=== PATIENT | female | born 1960 | race Native Hawaiian/Other Pacific Islander ===

== ENCOUNTER 2018-08-01 05:48 | Inpatient (IN) | payer OTHER ==
[2018-07-30 18:47] VITALS: BMI 25.9
--- NOTE | 2018-08-01 06:42 | CP.PCM.HP ---
History of Present Illness - History of Present Illness History of Present Illness: 58 YO female with no significant PMH except of seasonal allergy presented for elective right total knee revision. Initial TKR was done last November; however, patient never regained full ROM and the joint kept bothering her and finally decision was made for revision. At this time denies any other complaints. PMH: None PSH: Right total and left partial knee replacement, and tonsillectomy Social hx: Denies any toxic habits, lives with Family hx: DM in mother and brother and heart attack in mother at the age of 72 requiring CABG Home meds: None Next of kin: Code status: Full code ROS: Apart from positives and pertinent negatives mentioned in the HPI rest of 14 points ROS was unremarkable Physical exam: Vitals: Within normal limits HEENT: AT/NC, EOMI, PERLL, no JVD, no cervical lymphadenopathy Lungs: Clear bilaterally on auscultation Cardiovascular: S1/S2, RRR, pulses full and symmetric bilaterally, no pedal edema Abdomen: Soft, NT/ND, no organomegaly appreciated Genitalia: Deferred Extremities: Right knee swollen with limited ROM, otherwise no joint deformity and ROM intact Neuro-exam: Patient is AAOx3 and exam is grossly non-focal Present on Admission - Present on Admission Any Indicators Present on Admission: No Past Patient History - Past Medical History & Family History Past Medical History?: Yes - Past Social History Smoking Status: Never Smoked - CARDIAC Hx Cardiac Disorders: No - PULMONARY Hx Respiratory Disorders: Yes Other/Comment: HX OF COUGH AND COLDS-1 MONTH AGO - NEUROLOGICAL Hx Neurological Disorder: No - HEENT Hx HEENT Problems: No - RENAL Hx Chronic Kidney Disease: No - ENDOCRINE/METABOLIC Hx Endocrine Disorders: No - HEMATOLOGICAL/ONCOLOGICAL Hx Blood Disorders: No Hx Anemia: No Hx Blood Transfusions: No - INTEGUMENTARY Hx Dermatological Problems: No - MUSCULOSKELETAL/RHEUMATOLOGICAL Hx Musculoskeletal Disorders: Yes Hx Arthritis: Yes (knee) Hx Falls: Yes Hx Osteoarthritis: Yes - GASTROINTESTINAL Hx Gastrointestinal Disorders: No - GENITOURINARY/GYNECOLOGICAL Hx Genitourinary Disorders: No - PSYCHIATRIC Hx Psychophysiologic Disorder: No - SURGICAL HISTORY Hx Surgeries: Yes Hx Arthroscopy: Yes (2017-RIGHT KNEE ARTHROSCOPY) Hx Section: Yes (X1) Hx Joint Replacement: Yes (right knee) Hx Orthopedic Surgery: Yes (R KNEE MANIPULATION;2012-LEFT PARTIAL KNEE REPLACEMENT;2018-RIGHT KNEE REPL) Hx Tonsillectomy: Yes - ANESTHESIA Hx Anesthesia: Yes Hx Anesthesia Reactions: No Hx Malignant Hyperthermia: No Has any member of the family had a problem w/ anesthesia?: No Meds Allergies/Adverse Reactions: Allergies Allergy/AdvReac Type Severity Reaction Status Date / Time No Known Allergies Allergy Verified 06/27/18 11:24 Results - Vital Signs Recent Vital Signs: Last Vital Signs Temp 98 F 08/01/18 06:28 Pulse 68 08/01/18 06:28 Resp 18 08/01/18 06:28 BP 126/69 08/01/18 06:28 Pulse Ox 98 08/01/18 06:28 Assessment & Plan - Assessment and Plan (Free Text) Assessment: 58 yo female presented for right total knee revision. As far as pre-op risk assessment she is of average risk for this intermediate risk procedure. No need for any further pre-op work up. Can proceed with surgery as planned.
[2018-08-01] MEDS ORDERED: Lactated Ringer's 1,000 ML IV ONE ×2 (06:53→08:17)
--- NOTE | 2018-08-01 07:20 | CP.PCM.CON ---
History of Present Illness - History of Present Illness History of Present Illness: Orthopedic consultation Dr. Parra 58F complains of continued right knee pain after TKR 11/2017 in [place] found to have failed TKR for revision TKR. Patient had successful L partial knee replacement in 2011. No history of bleeding/clotting disorder. No history of CVA/CAD/seizure disorder/stents. PSH: as above, c section PMH: denies NKDA no daily medication Review of Systems - Review of Systems All systems: reviewed and no additional remarkable complaints except - Musculoskeletal Musculoskeletal: As Per HPI Past Patient History - Past Medical History & Family History Past Medical History?: Yes Past Family History: Reviewed and not pertinent - Past Social History Smoking Status: Never Smoked - CARDIAC Hx Cardiac Disorders: No - PULMONARY Hx Respiratory Disorders: Yes Other/Comment: HX OF COUGH AND COLDS-1 MONTH AGO - NEUROLOGICAL Hx Neurological Disorder: No - HEENT Hx HEENT Problems: No - RENAL Hx Chronic Kidney Disease: No - ENDOCRINE/METABOLIC Hx Endocrine Disorders: No - HEMATOLOGICAL/ONCOLOGICAL Hx Blood Disorders: No Hx Anemia: No Hx Blood Transfusions: No - INTEGUMENTARY Hx Dermatological Problems: No - MUSCULOSKELETAL/RHEUMATOLOGICAL Hx Musculoskeletal Disorders: Yes Hx Arthritis: Yes (knee) Hx Falls: Yes Hx Osteoarthritis: Yes - GASTROINTESTINAL Hx Gastrointestinal Disorders: No - GENITOURINARY/GYNECOLOGICAL Hx Genitourinary Disorders: No - PSYCHIATRIC Hx Psychophysiologic Disorder: No - SURGICAL HISTORY Hx Surgeries: Yes Hx Arthroscopy: Yes (2017-RIGHT KNEE ARTHROSCOPY) Hx Section: Yes (X1) Hx Joint Replacement: Yes (right knee) Hx Orthopedic Surgery: Yes (R KNEE MANIPULATION;2011-LEFT PARTIAL KNEE REPLACEMENT;2017-RIGHT KNEE REPL) Hx Tonsillectomy: Yes - ANESTHESIA Hx Anesthesia: Yes Hx Anesthesia Reactions: No Hx Malignant Hyperthermia: No Has any member of the family had a problem w/ anesthesia?: No Meds Allergies/Adverse Reactions: Allergies Allergy/AdvReac Type Severity Reaction Status Date / Time No Known Allergies Allergy Verified 08/01/18 06:43 Physical Exam - Constitutional Appears: Well, No Acute Distress - Head Exam Head Exam: ATRAUMATIC - Neck Exam Neck exam: Positive for: Full Rom, Normal Inspection - Respiratory Exam Respiratory Exam: NORMAL BREATHING PATTERN - Expanded Lower Extremities Exam Right Knee exam: swelling, tenderness (very limited ROM, unable to extend -10) Neuro vacular tendon exam: no vascular compromise (+DP/PT pulses) - Neurological Exam Neurological exam: Alert, Oriented x3 - Psychiatric Exam Psychiatric exam: Normal Affect, Normal Mood - Skin Skin Exam: Dry, Intact, Normal Color, Warm Results - Vital Signs Recent Vital Signs: Last Vital Signs Temp 98 F 08/01/18 06:28 Pulse 68 08/01/18 06:35 Resp 18 08/01/18 06:28 BP 126/69 08/01/18 06:28 Pulse Ox 98 08/01/18 06:28 Assessment & Plan (1) Failed total knee, right Assessment and Plan: NPO for revision TKR d/w Dr. Parra, agrees with above Status: Acute
[2018-08-01] MEDS ORDERED: Tranexamic Acid 1,000 MG in Sodium Chloride 0.9% 100 ML IVPB ONE (07:25)
[2018-08-01] MEDS ORDERED: Absorbable Gelatin Sponge Size 100 ONE (07:34)
[2018-08-01] MEDS ORDERED: EPINEPHrine 1 mg/ml (1:1000) Inj IV ONE (10:15)
[2018-08-01 10:38] LABS: FLUID TYPE SYNOVIAL FLUID
[2018-08-01] MEDS ORDERED: Bacitracin OINT 15GM TOP ONE (11:40)
[2018-08-01 12:01] LABS: SF GROSS APPEARANCE CLOUDY (CLEAR); SYNOVIAL FLUID COMMENT SLIGHTLY BLOODY
[2018-08-01 12:02] LABS: SYNOVIAL FLUID MONO/MACROPHAGE 3 % (0-0)
[2018-08-01] MEDS ORDERED: Bisacodyl 5mg EC Tab PO PRN (12:10)
[2018-08-01] MEDS: HYDROmorphone 0.5 mg/0.5 ml ISec IVP PRN ×2 (12:20→12:35)
--- NOTE | 2018-08-01 13:05 | RAD ---
Date of service: 08/01/2018 PROCEDURE: Right Knee Radiographs. HISTORY: s/pt TKR pt in PACU COMPARISON: None. TECHNIQUE: 2 views obtained. FINDINGS: BONES: Status post total knee replacement. No osseous fracture. JOINTS: As above JOINT EFFUSION: None OTHER FINDINGS: There is a postoperative surgical drain. There anterior midline cutaneous brooke. IMPRESSION: Status post right TKR.
[2018-08-01] MEDS: Lactated Ringer's 1,000 ML IV SCH ×3 (14:24→21:44)
[2018-08-01] MEDS: ceFAZolin 2 GM in Sodium Chloride 0.9% 100 ML IVPB SCH ×2 (16:04→23:34)
--- NOTE | 2018-08-01 17:36 | CP.PCM.PN ---
Subjective - Date & Time of Evaluation Date of Evaluation: 08/01/18 Time of Evaluation: 17:15 - Subjective Subjective: Patient seen and examined at bedside POD 0 s/p revision of right TKR. Family present at bedside. Pt reports being tired, but denies any f/c/n/v/diarrhea, cp or sob. Objective - Vital Signs/Intake and Output Vital Signs (last 24 hours): Temp Pulse Resp BP Pulse Ox 97.4 F L 75 20 105/66 95 08/01/18 16:31 08/01/18 16:31 08/01/18 16:31 08/01/18 16:31 08/01/18 16:31 Intake and Output: 08/01/18 08/01/18 06:59 18:59 Intake Total 1500 Output Total 20 Balance 1480 - Medications Medications: Current Medications Acetaminophen (Tylenol 325mg Tab) 650 mg PO Q4 [facility] Last Admin: 08/01/18 17:26 Dose: Not Given Bisacodyl (Dulcolax) 10 mg PO HS PRN PRN Reason: Constipation Docusate Sodium (Colace) 100 mg PO BID [facility] Last Admin: 08/01/18 17:32 Dose: 100 mg Enoxaparin Sodium (Lovenox) 40 mg SC DAILY [facility]; Protocol Acetaminophen (Ofirmev) 100 mls @ 400 mls/hr IVPB Q6H [facility]; Protocol Stop: 08/02/18 08:01 Last Admin: 08/01/18 15:54 Dose: 400 mls/hr Lactated Ringer's (Lactated Ringer's) 1,000 mls @ 100 mls/hr IV .Q10H [facility] Last Admin: 08/01/18 14:24 Dose: Not Given Sodium Chloride (Sodium Chloride 0.45%) 1,000 mls @ 80 mls/hr IV .[id number] [facility] Stop: 08/02/18 13:14 Cefazolin Sodium 2 gm/ Sodium (Chloride) 100 mls @ 100 mls/hr IVPB Q8H [facility]; Protocol Stop: 08/02/18 00:59 Last Admin: 08/01/18 16:04 Dose: 100 mls/hr Morphine Sulfate (Morphine) 2 mg IVP Q4 PRN PRN Reason: Pain, severe (8-10) Ondansetron HCl (Zofran Inj) 4 mg IVP Q6 PRN PRN Reason: Nausea/Vomiting - Constitutional Appears: Non-toxic - Head Exam Head Exam: ATRAUMATIC, NORMAL INSPECTION - Eye Exam Eye Exam: EOMI - ENT Exam ENT Exam: Mucous Membranes Moist - Respiratory Exam Respiratory Exam: Clear to Ausculation Bilateral - Cardiovascular Exam Cardiovascular Exam: REGULAR RHYTHM, +S1, +S2 - GI/Abdominal Exam GI & Abdominal Exam: Soft, Normal Bowel Sounds. absent: Rigid, Tenderness - Extremities Exam Additional comments: right knee imbolizer in place; scd in place on left lower leg - Neurological Exam Neurological Exam: Alert, Awake, Oriented x3 - Skin Skin Exam: Normal Color Assessment and Plan - Assessment and Plan (Free Text) Assessment: 58 t/o female with no significant PMH, POD 0 s/p revision of right TKR. 1. Revision of right TKR -Cont management as per Ortho -FU CBC, BMP, Vit D, wound cultures -VS currently stable; cont. to Monitor
[2018-08-01] MEDS: Sodium Chloride 0.45% 1,000 ML IV SCH (21:44)
[2018-08-02] MEDS: Sodium Chloride 0.45% 1,000 ML IV SCH (01:46)
--- NOTE | 2018-08-02 06:13 | CP.PCM.PN ---
Subjective - Date & Time of Evaluation Date of Evaluation: 08/02/18 Time of Evaluation: 06:13 - Subjective Subjective: Patient states pain is well controlled. Urinating freq. Lita CP/SOB/dizziness/numbness/tingling Objective - Vital Signs/Intake and Output Vital Signs (last 24 hours): Temp Pulse Resp BP Pulse Ox 97.3 F L 58 L 18 101/66 92 L 08/02/18 04:12 08/02/18 04:12 08/02/18 04:12 08/02/18 04:12 08/02/18 04:12 Intake and Output: 08/01/18 08/02/18 18:59 06:59 Intake Total 1500 Output Total 20 Balance 1480 - Medications Medications: Current Medications Acetaminophen (Tylenol 325mg Tab) 650 mg PO Q4 [facility] Last Admin: 08/02/18 01:00 Dose: Not Given Bisacodyl (Dulcolax) 10 mg PO HS PRN PRN Reason: Constipation Docusate Sodium (Colace) 100 mg PO BID [facility] Last Admin: 08/01/18 17:32 Dose: 100 mg Enoxaparin Sodium (Lovenox) 40 mg SC DAILY [facility]; Protocol Acetaminophen (Ofirmev) 100 mls @ 400 mls/hr IVPB Q6H [facility]; Protocol Stop: 08/02/18 08:01 Last Admin: 08/02/18 01:45 Dose: 400 mls/hr Morphine Sulfate (Morphine) 2 mg IVP Q4 PRN PRN Reason: Pain, severe (8-10) Ondansetron HCl (Zofran Inj) 4 mg IVP Q6 PRN PRN Reason: Nausea/Vomiting - Extremities Exam Additional comments: right Knee: hemovac 100cc +ROM ankle/toes, sensation intact, +DP/PT pulses calves soft NT neg homans Assessment and Plan (1) Failed total knee, right Assessment & Plan: POD#1 s/p revision TKR hypotensive with PT, will hold narcotics, IVF attempt again d/c planning dVT proph d/w Dr. Parra, agrees with above Status: Acute (2) Acute blood loss anemia Status: Acute
[2018-08-02 06:19] LABS: HEMOGLOBIN 9.6 g/dL (12.0-16.0); MEAN CELL VOLUME 84.1 fl (81.0-99.0); MEAN CORPUSCULAR HEMOGLOBIN 27.4 pg (27.0-31.0); MEAN CORPUSCULAR HGB CONC 32.6 g/dL (33.0-37.0); RBC 3.49 Mil/uL (3.80-5.20); WHITE BLOOD COUNT 11.1 K/uL (4.8-10.8)
[2018-08-02 06:26] LABS: BLOOD UREA NITROGEN 11 mg/dl (7-17); CALCIUM 8.8 mg/dL (8.4-10.2); GFR NON-AFRICAN AMERICAN > 60
--- NOTE | 2018-08-02 08:24 | PCM.SURG1 ---
Surgeon's Initial Post Op Note - Surgeon's Notes Surgeon: Fidel Criminal Court Judge: GADIEL Davies CRNFa Type of Anesthesia: General Endo, Spinal Anesthesia Administered By: Dr Ulloa Pre-Operative Diagnosis: failed painful TKR. Sever arthrofibrosis Operative Findings: severe arthrofibrosis- anterior and posterior compartment/medial and lateral gutters. posterior capsular comntracture. lateral; patella contracture. stress fracture medial condyle /epicondyle Post-Operative Diagnosis: severe arthrofibrosis- anterior and posterior compartments. stress fracture medial epicondyle with partial compromise medial collateral ligament(superficial). severe fibrosis and contracture posterior knee capsule. contracture lateral patella retinaculum. partial avulsion patella ligament. sever arthrofibrosis with 30 contracture short of extension to 75 degrees flexion Operation Performed: Revision TKR (tibial- one componenet). ORIF medial epicondylar/condylar fragment with A/C screw fixation. repair/reinforecment patella ligamnet. repair medial collateral ligament (partial tear). posterior cqpsular releaase. lateral patella releaase. Anterior and posterior synovectomy Specimen/Specimens Removed: scar/ bone/synovium Estimated Blood Loss: EBL {In ML}: 125 Blood Products Given: N/A Drains Used: Hemovac Post-Op Condition: Fair Date of Surgery/Procedure: 08/01/18 Time of Surgery/Procedure: 09:05 (time in room 8:17/anaeasthesia indcurtion time 8:17)
[2018-08-02] MEDS ORDERED: Enoxaparin 40 mg Syringe SC SCH (09:00)
--- NOTE | 2018-08-02 09:10 | CP.PCM.DIS ---
Provider - Provider Date of Admission: 08/01/18 12:10 Attending physician: Leona Ramos DO Consults: 08/01/18 12:10 Case Management Referral Routine Comment: Physician Instructions: Reason For Exam: Reason for Referral: Discharge Planning 08/01/18 13:05 Orthopedic Consult Routine Comment: Consulting Provider: Roman Parra III Consulting Physician: Roman Parra III Reason for Consult: revision TKR Hospital Course - Lab Results Lab Results: Micro Results 08/01/18 13:56 Knee - Right Gram Stain - Final 08/01/18 13:56 Knee - Right Gram Stain - Final 08/01/18 13:56 Knee - Right Gram Stain - Final 08/01/18 13:56 Knee - Right Gram Stain - Final 08/01/18 13:56 Knee - Right Gram Stain - Final 08/01/18 13:56 Knee - Right Gram Stain - Final 08/01/18 13:56 Knee - Right Gram Stain - Final Most Recent Lab Values WBC 11.1 K/uL (4.8-10.8) H 08/02/18 06:05 RBC 3.49 Mil/uL (3.80-5.20) L 08/02/18 06:05 Hgb 9.6 g/dL (12.0-16.0) L 08/02/18 06:05 Hct 29.4 % (34.0-47.0) L 08/02/18 06:05 MCV 84.1 fl (81.0-99.0) 08/02/18 06:05 MCH 27.4 pg (27.0-31.0) 08/02/18 06:05 MCHC 32.6 g/dL (33.0-37.0) L 08/02/18 06:05 RDW 14.0 % (11.5-14.5) 08/02/18 06:05 Plt Count 335 K/uL (130-400) 08/02/18 06:05 Sodium 138 mmol/l (132-148) 08/02/18 06:05 Potassium 4.3 MMOL/L (3.6-5.0) 08/02/18 06:05 Chloride 105 mmol/L (98-107) 08/02/18 06:05 Carbon Dioxide 29 mmol/L (22-30) 08/02/18 06:05 Anion Gap 8 (10-20) L 08/02/18 06:05 BUN 11 mg/dl (7-17) 08/02/18 06:05 Creatinine 0.7 mg/dl (0.7-1.2) 08/02/18 06:05 Est GFR ( Amer) > 60 08/02/18 06:05 Est GFR (Non-Af Amer) > 60 08/02/18 06:05 Random Glucose 108 mg/dL (65-105) H 08/02/18 06:05 Calcium 8.8 mg/dL (8.4-10.2) 08/02/18 06:05 Fluid Type Synovial fluid 08/01/18 09:12 Synovial WBC 21.0 /mm3 (0.0-150.0) 08/01/18 09:12 Synovial RBC 32061.0 /mm3 (0.0-0.0) H 08/01/18 09:12 Synovial Neutrophils 19.0 % (0-0) H 08/01/18 09:12 Synovial Lymphocytes 28.0 % (0-0) H 08/01/18 09:12 Synov Monos/Macrophage 3 % (0-0) H 08/01/18 09:12 Synovial Fluid Comment Slightly bloody 08/01/18 09:12 Blood Type O POSITIVE 08/01/18 07:20 Blood Type Confirm O POSITIVE 08/01/18 08:15 Antibody Screen Negative 08/01/18 07:20 Crossmatch See Detail 08/01/18 07:20 BBK History Checked No verified bt 08/01/18 07:20 Discharge Exam - Head Exam Head Exam: ATRAUMATIC, NORMAL INSPECTION Discharge Plan - Follow Up Plan Condition: GOOD Disposition: HOME/ ROUTINE
[2018-08-02] MEDS: Sodium Chloride 0.9% 500 ML IV SCH ×4 (09:36→20:57)
--- NOTE | 2018-08-02 11:59 | CP.PCM.PN ---
Subjective - Date & Time of Evaluation Date of Evaluation: 08/02/18 Time of Evaluation: 09:12 - Subjective Subjective: 58 y/o F POD1 sp revision of Rt TKR. Patient had an episode of orthostatic hypotension while with physical therapy. LR bolus was given. Pt denied any cp or sob. Will cont. to monitor. Denies f/c/n/v. Objective - Vital Signs/Intake and Output Vital Signs (last 24 hours): Temp Pulse Resp BP Pulse Ox 97.6 F 62 20 95/60 L 95 08/02/18 08:13 08/02/18 08:13 08/02/18 08:13 08/02/18 08:13 08/02/18 08:13 Intake and Output: 08/02/18 08/02/18 06:59 18:59 Intake Total 1260 Output Total 2500 Balance -1240 - Medications Medications: Current Medications Acetaminophen (Tylenol 325mg Tab) 650 mg PO Q4 [facility] Last Admin: 08/02/18 09:34 Dose: 650 mg Bisacodyl (Dulcolax) 10 mg PO HS PRN PRN Reason: Constipation Docusate Sodium (Colace) 100 mg PO BID [facility] Last Admin: 08/02/18 09:38 Dose: 100 mg Enoxaparin Sodium (Lovenox) 40 mg SC DAILY [facility]; Protocol Sodium Chloride (Sodium Chloride 0.9%) 500 mls @ 125 mls/hr IV .Q4H [facility] Last Admin: 08/02/18 09:36 Dose: 125 mls/hr Lactated Ringer's (Lactated Ringer's) 1,000 mls @ 999 mls/hr IV .Q1H1M [facility] Ketorolac Tromethamine (Toradol) 30 mg IVP Q6 PRN PRN Reason: Pain, Mild (1-3) Morphine Sulfate (Morphine) 2 mg IVP Q4 PRN PRN Reason: Pain, severe (8-10) Last Admin: 08/02/18 09:56 Dose: 2 mg Ondansetron HCl (Zofran Inj) 4 mg IVP Q6 PRN PRN Reason: Nausea/Vomiting - Labs Labs: 08/02/18 06:05 08/02/18 06:05 - Constitutional Appears: Non-toxic - Head Exam Head Exam: ATRAUMATIC, NORMAL INSPECTION - Eye Exam Eye Exam: EOMI - ENT Exam ENT Exam: Mucous Membranes Moist - Respiratory Exam Respiratory Exam: Clear to Ausculation Bilateral - Cardiovascular Exam Cardiovascular Exam: REGULAR RHYTHM, +S1, +S2 - Extremities Exam Additional comments: right knee imbolizer in place; scd in place on left lower leg - Neurological Exam Neurological Exam: Alert, Awake, Oriented x3 Additional comments: sensation to b/l lower ext digits intact and symmetrical - Psychiatric Exam Psychiatric exam: Normal Mood - Skin Skin Exam: Dry Assessment and Plan - Assessment and Plan (Free Text) Assessment: 58 y/o female with no significant PMH, POD 1 s/p revision of right TKR. 1. Revision of right TKR -Cont management as per Ortho -Hbg, 9.6; , BMP unremarkable; FU am labs - cont. to Monitor 2. Vit D deficiency -C/w vit D replacement
--- NOTE | 2018-08-02 15:48 | OP ---
PROCEDURE DATE: 08/01/2018 PREOPERATIVE DIAGNOSES: 1. Severe arthrofibrosis, right knee. 2. Failed painful right total knee replacement. POSTOPERATIVE DIAGNOSES: 1. Severe arthrofibrosis of anterior and posterior compartments and medial and lateral patellar gutters. 2. Fracture of the medial epicondyle/condyle with compromise of the medial collateral ligament, superficial. 3. Severe arthrofibrosis and contracture of the posterior capsule of the knee. 4. Lateral patellar retinacular contracture. 5. Partial avulsion of patellar ligament. 6. In summary, severe arthrofibrosis and painful knee for this patient with 30-degree contracture short of extension, which was only 75-80 degrees of flexion. OPERATION PERFORMED: 1. Revision total knee replacement, one component. 2. Open reduction internal fixation of medial epicondyle and medial condylar fragment with internal fixation. 3. Repair and reinforcement of patellar ligament with Arthrex suture anchors, which are PEEK. 4. Medial collateral ligament partial tear repair. 5. Extensive posterior capsular release. 6. Lateral patellar retinacular release. 7. Anterior and posterior synovectomy, extensive. SURGEON: Roman Parra MD OPERATIVE FINDINGS: 1. Severe arthrofibrosis of the right knee anterior and posterior compartments. 2. Severe contracture of the posterior compartment with contracture of the lateral patellar retinaculum. 3. Stress fracture, medial condyle, epicondyle. 4. Partial avulsion of less than 25% of fibers of the patellar ligament insertion. ESTIMATED BLOOD LOSS: Approximately 125 mL. No blood products given. DRAINS: One Hemovac. POSTOPERATIVE CONDITION: Stable. Range of motion at the end of the procedure was essentially full extension to approximately 125 degrees of flexion. TIME IN THE ROOM: 8:17. TIME OF THE PROCEDURE: 9:05. OPERATIVE INDICATIONS: Vidal Vincent is a 58-year-old woman, who presents after right total knee replacement done at [facility] approximately one year ago. The patient felt the knee was never quite right. During the course of rehabilitation, the patient developed contracture of approximately 30 degrees short of extension to 75-80 degrees of flexion. The patient was treated conservatively. The initial operating surgeon, Dr. Williamson, attempted closed manipulation which failed. The patient could no longer stand the discomfort. Her gait had deteriorated to the fact that it was painful, unsightly and the patient could not deal with it any longer. Pros, cons, risks and benefits of surgical approach were discussed. The surgical discussion was carried out with the patient and her , Terence, and again, defining the fact that the patient's responsibility after a successful operation is to rehab the knee. She has to bend it, she has to get it to full extension. A large onus is on the patient. The possibility of mechanical failure, infection, possibility of thromboembolic disease, possibility of secondary or tertiary surgery was discussed. Possibility of nerve injury was discussed. The patient can no longer stand the discomfort and demanded the surgery. SPECIMENS REMOVED: Scar, bone and synovium. DESCRIPTION OF PROCEDURE: After having obtained informed consent in the above fashion, after having identified side, site and procedure and a critical pause/time-out, after the satisfactory induction of the anesthetic, the patient identified as Vidal Vincent, was placed in the supine position with all bony prominences well padded. The knee again was found to have a contracture of approximately -32 degrees to 75 degrees. Closed manipulation was attempted and failed. At this point, after having obtained informed consent, after the satisfactory induction of the spinal and general anesthesia by Dr. Long, after having identified side, site and procedure and critical pause/time-out, the right lower extremity was prepped and free draped in the usual fashion for lower extremity surgery. The tourniquet had been applied, but was not yet inflated. After exsanguinating the limb using a 6-inch Esmarch bandage, the tourniquet, which had been applied, was inflated to 350 mmHg. The initial incision was extended two fingerbreadths proximal and two fingerbreadths distal. The initial incision after having identified and accomplishing a critical pause/time-out, skin incision was carried down through the skin and subcutaneous tissue. An ellipse of skin and subcutaneous tissue was removed. Dissection was carried out medially and laterally to expose the medial and lateral patellar retinaculum. The joint was entered. A medial arthrotomy was accomplished. There was found to be massive scar immediately. Aliquots of fluid was sent for stat Gram stain, number of white cells per high-power field, aerobic, anaerobic, AFB and fungal cultures. Dissection was carried around posteromedially to the direct head of the semimembranosus tendon. On flexion of the knee, there was found to be a stress fracture of the medial femoral condyle and the epicondyle because of the severe scarring to the structure. With flexion, there was minimal displacement. At this point in time, extensive synovectomy commences. A portion of the patellar ligament was elevated. Great care was taken to go around posterolaterally to free up the iliotibial band insertion into the Gerdy's tubercle and lateral aspect of the tibia. This having been accomplished, attention was turned to the lateral gutter. There was found to be contracture of the lateral patellar retinaculum. A lateral patellar retinacular release was accomplished. At this point in time, the joint was entered both medially and laterally. An extensive synovectomy commences. Firstly on the anterior aspect of the femur, there was found to be gross hyalinization and severe synovitis. An extensive synovectomy was accomplished and adhesions of the extensor mechanism are encountered, so using a 1-inch curved osteotome, the extensor mechanism was freed from the anterior aspect of the femur. Medial and lateral patellar retinaculum were identified. Medial arthrotomy was accomplished. The scarring in the medial aspect was excised as well and a lateral patellar retinacular release was accomplished. This having been accomplished, there was found to be evidence of some minor compromise of the medial collateral ligament in the attachment to the fracture component, which was exacerbated on flexion and, therefore, had to be fixed. At this point in time, the Slade polyethylene was removed and extensive adhesions were found both on the component and in the posterior capsule. This having been accomplished with both assistance stabilizing the femur and the tibia so as not to have any deviation posteriorly, an extensive posterior synovectomy was accomplished. The posterior capsule was found to be originally contracted at this point in time. In the posterior recess posterior to the lateral femoral condyle, using the curved electrocautery, the capsule was released. Further release was accomplished with a half-inch curved osteotome of the posterior aspect of the femur. Great care was taken to avoid injury to the popliteal artery and the neurocirculatory structures. The same thing was accomplished medially. The posterior capsule was released. There was a bit of instability because of the fracture fragment. At this point in time, with the tibial polyethylene removed and extensive posterior capsular release had been accomplished, an extensive lysis of adhesions in the posterior compartment had been accomplished, extensive lysis of adhesions in the anterior compartment extending medially and laterally and a thorough lateral patellar retinacular release was accomplished and a partial elevation of patellar ligament offered ability to get the knee to full extension. The knee at this point in time achieved full extension. With the knee now on 30 degrees of flexion, the fragment was placed back to its bed and drilling was accomplished with a 2.7-mm drill bit and the appropriate size AO cancellous screw was introduced and the fragment fixation was found to be stable. At this point in time, several interrupted FiberWire sutures were placed in the collateral ligament. There was found to be excellent integrity and no instability medially or laterally as the 12 mm polyethylene was introduced. With the 12 mm polyethylene introduced, the knee obtained full extension. Please refer to the intraoperative photographs, which had been taken on the cell phone of Wilbert Maldonado. Flexion to approximately 125 degrees to 127 degrees was obtained. There was no evidence of instability medially and laterally, anterior and posteriorly. Fixation of the fragment was found to be excellent. The wound was thoroughly irrigated. At this point in time, the trial was removed. All adhesions were removed from the femoral component and the tibial component. Both the femoral component and the tibial component were found to be well fixed. At this point in time, the 12-mm polyethylene was introduced. The Slade 12-mm polyethylene was introduced after extensive anterior and posterior synovectomy and extensive posterior capsular release and lateral patellar retinacular release. This allowed the knee to be brought to full extension. At this point in time, the 12-mm Slade polyethylene was introduced. Flexion/extension was found to be stable. Medial and lateral are stable at 0 degrees, 30 degrees, and 90 degrees. The wound was thoroughly irrigated. Hemostasis was controlled with the Aquamantys. Tourniquet was deflated. Irrigation was with epinephrine solution as well, 1:1000 epinephrine 2 mL and 250 mL of saline. Extensive irrigation. Hemostasis was controlled with the Aquamantys and the electrocautery. Closure was in layers with #2 FiberWire. At this point in time, the patellar ligament was repaired with two interrupted Arthrex SutureTak's. Drilling was accomplished followed by impaction of 3 mm tack and 4 mm tack, each with two sutures apiece and this stabilized the patellar ligament both to the medial retinaculum and to the patellar ligament. The stability was found to be excellent. Flexion/extension was stable. The medial condylar epicondylar fragment was stable. The wound was thoroughly irrigated. The tourniquet was deflated. Hemostasis was controlled with the Aquamantys; and with the electrocautery. It should be noted that preoperative tranexamic acid had been accomplished. The wound was thoroughly irrigated. Closure was in layers, #2 FiberWire, 0 Vicryl, 2-0 Vicryl, brooke for skin over an 8-inch suction Hemovac drain. Odell Hillman compression dressing and knee immobilizer with the knee in full extension was applied. Roman Parra MD
[2018-08-02] MEDS: Calcium-Vit D 500 mg-200 Units Tab UD PO SCH (16:11)
[2018-08-02] MEDS: Cholecalciferol 1,000 INTLU TAB PO SCH (16:12)
[2018-08-02] MEDS: Lactated Ringer's 1,000 ML IV SCH ×10 (16:17→23:28)
[2018-08-02] MEDS: Enoxaparin 40 mg Syringe SC SCH (17:08)
[2018-08-03] MEDS: Lactated Ringer's 1,000 ML IV SCH ×7 (00:25→06:56)
[2018-08-03] MEDS: Sodium Chloride 0.9% 500 ML IV SCH ×6 (00:33→16:29)
[2018-08-03 07:54] LABS: HEMOGLOBIN 9.1 g/dL (12.0-16.0); MEAN CELL VOLUME 84.5 fl (81.0-99.0); MEAN CORPUSCULAR HEMOGLOBIN 27.8 pg (27.0-31.0); MEAN CORPUSCULAR HGB CONC 32.9 g/dL (33.0-37.0); RBC 3.28 Mil/uL (3.80-5.20); RED CELL DISTRIBUTION WIDTH 14.2 % (11.5-14.5); WHITE BLOOD COUNT 10.1 K/uL (4.8-10.8)
[2018-08-03 08:16] LABS: BLOOD UREA NITROGEN 11 mg/dl (7-17); CALCIUM 8.3 mg/dL (8.4-10.2); GFR NON-AFRICAN AMERICAN > 60
[2018-08-03] MEDS ORDERED: Bisacodyl 5mg EC Tab PO ONE (10:32)
[2018-08-03] MEDS: Cholecalciferol 1,000 INTLU TAB PO SCH (11:08)
[2018-08-03] MEDS: Calcium-Vit D 500 mg-200 Units Tab UD PO SCH (11:10)
--- NOTE | 2018-08-03 13:55 | CP.PCM.PN ---
<Angelina Naik - Last Filed: 08/03/18 13:51> Subjective - Date & Time of Evaluation Date of Evaluation: 08/03/18 Time of Evaluation: 09:25 - Subjective Subjective: 58 y/o F POD2 sp revision of Rt TKR. Patient reports that her pain has been controlled on current pain control regimen. States that her last BM was 3 days ago, and she feels " uncomfortable" . Denies CP/SOB/N/V. Objective - Vital Signs/Intake and Output Vital Signs (last 24 hours): Temp Pulse Resp BP Pulse Ox 98.3 F 99 H 20 112/73 95 08/03/18 08:53 08/03/18 08:53 08/03/18 08:53 08/03/18 08:53 08/03/18 08:53 Intake and Output: 08/03/18 08/03/18 06:59 18:59 Output Total 70 Balance -70 - Medications Medications: Current Medications Acetaminophen (Tylenol 325mg Tab) 650 mg PO Q4 [facility] Last Admin: 08/03/18 11:12 Dose: Not Given Bisacodyl (Dulcolax) 10 mg PO HS PRN PRN Reason: Constipation Calcium/Vitamin D (Oyster Shell Calcium/Vitamin D 500 Mg-200 Iu) 1 tab PO DAILY [facility] Last Admin: 08/03/18 11:10 Dose: 1 tab Cholecalciferol (Vitamin D) 4,000 intlu PO DAILY [facility] Last Admin: 08/03/18 11:08 Dose: 4,000 intlu Docusate Sodium (Colace) 100 mg PO BID [facility] Last Admin: 08/03/18 11:12 Dose: Not Given Enoxaparin Sodium (Lovenox) 40 mg SC DAILY@1700 [facility]; Protocol Last Admin: 08/02/18 17:08 Dose: Not Given Sodium Chloride (Sodium Chloride 0.9%) 500 mls @ 125 mls/hr IV .Q4H [facility] Last Admin: 08/03/18 11:12 Dose: Not Given Lactated Ringer's (Lactated Ringer's) 1,000 mls @ 999 mls/hr IV .Q1H1M [facility] Last Admin: 08/03/18 06:56 Dose: Not Given Ketorolac Tromethamine (Toradol) 30 mg IVP Q6 PRN PRN Reason: Pain, Mild (1-3) Last Admin: 08/02/18 13:12 Dose: 30 mg Morphine Sulfate (Morphine) 2 mg IVP Q4 PRN PRN Reason: Pain, severe (8-10) Last Admin: 08/02/18 18:10 Dose: 2 mg Ondansetron HCl (Zofran Inj) 4 mg IVP Q6 PRN PRN Reason: Nausea/Vomiting - Labs Labs: 08/03/18 06:00 08/03/18 06:00 - Skin Additional comments: Constitutional Appears: Non-toxic - Head Exam Head Exam: ATRAUMATIC, NORMAL INSPECTION - Eye Exam Eye Exam: EOMI - ENT Exam ENT Exam: Mucous Membranes Moist - Respiratory Exam Respiratory Exam: Clear to Ausculation Bilateral - Cardiovascular Exam Cardiovascular Exam: REGULAR RHYTHM, +S1, +S2 - Extremities Exam Additional comments: right knee imbolizer in place; scd in place on left lower leg - Neurological Exam Neurological Exam: Alert, Awake, Oriented x3 Additional comments: sensation to b/l lower ext digits intact and symmetrical - Psychiatric Exam Psychiatric exam: Normal Mood Assessment and Plan - Assessment and Plan (Free Text) Assessment: 58 y/o female with no significant PMH, POD 2 s/p revision of right TKR. Plan: 1. Revision of right TKR -on POD #2 -afebrile, VS stable -Cont management as per Ortho -c/w pain control -c/w constipation prevention -will give Dulcolax now -Hbg stable; , BMP unremarkable -cont. to Monitor 2. Vit D deficiency -C/w vit D replacement 3. DVT prophylaxis on Lovenox 40 mg SC <Allie Lay - Last Filed: 08/03/18 16:03> Objective - Vital Signs/Intake and Output Vital Signs (last 24 hours): Temp Pulse Resp BP Pulse Ox 98.3 F 99 H 20 112/73 95 08/03/18 08:53 08/03/18 08:53 08/03/18 08:53 08/03/18 08:53 08/03/18 08:53 Intake and Output: 08/03/18 08/03/18 06:59 18:59 Output Total 70 Balance -70 - Medications Medications: Current Medications Acetaminophen (Tylenol 325mg Tab) 650 mg PO Q4 [facility] Last Admin: 08/03/18 11:12 Dose: Not Given Bisacodyl (Dulcolax) 10 mg PO HS PRN PRN Reason: Constipation Calcium/Vitamin D (Oyster Shell Calcium/Vitamin D 500 Mg-200 Iu) 1 tab PO DAILY [facility] Last Admin: 08/03/18 11:10 Dose: 1 tab Cholecalciferol (Vitamin D) 4,000 intlu PO DAILY [facility] Last Admin: 08/03/18 11:08 Dose: 4,000 intlu Docusate Sodium (Colace) 100 mg PO BID [facility] Last Admin: 08/03/18 11:12 Dose: Not Given Enoxaparin Sodium (Lovenox) 40 mg SC DAILY@1700 [facility]; Protocol Last Admin: 08/02/18 17:08 Dose: Not Given Sodium Chloride (Sodium Chloride 0.9%) 500 mls @ 125 mls/hr IV .Q4H [facility] Last Admin: 08/03/18 11:12 Dose: Not Given Lactated Ringer's (Lactated Ringer's) 1,000 mls @ 999 mls/hr IV .Q1H1M [facility] Last Admin: 08/03/18 06:56 Dose: Not Given Ketorolac Tromethamine (Toradol) 30 mg IVP Q6 PRN PRN Reason: Pain, Mild (1-3) Last Admin: 08/02/18 13:12 Dose: 30 mg Morphine Sulfate (Morphine) 2 mg IVP Q4 PRN PRN Reason: Pain, severe (8-10) Last Admin: 08/02/18 18:10 Dose: 2 mg Ondansetron HCl (Zofran Inj) 4 mg IVP Q6 PRN PRN Reason: Nausea/Vomiting - Labs Labs: 08/03/18 06:00 08/03/18 06:00 Attending/Attestation - Attestation I have personally seen and examined this patient.: Yes I have fully participated in the care of the patient.: Yes I have reviewed all pertinent clinical information, including history, physical exam and plan: Yes Notes (Text): Revision TKR Right knee Primary Osteoarthritis Pt's pain is controlled DVT proph with Lovenox received IV Cefazoin x 3 doses PT/OT consulted - rec MONA awaiting MONA placement/insurance authorization
[2018-08-03] MEDS: Enoxaparin 40 mg Syringe SC SCH (16:22)
[2018-08-04 07:25] LABS: HEMOGLOBIN 10.2 g/dL (12.0-16.0); MEAN CELL VOLUME 83.4 fl (81.0-99.0); MEAN CORPUSCULAR HEMOGLOBIN 27.6 pg (27.0-31.0); MEAN CORPUSCULAR HGB CONC 33.1 g/dL (33.0-37.0); RBC 3.71 Mil/uL (3.80-5.20); RED CELL DISTRIBUTION WIDTH 14.2 % (11.5-14.5); WHITE BLOOD COUNT 16.6 K/uL (4.8-10.8)
[2018-08-04 07:34] LABS: BLOOD UREA NITROGEN 8 mg/dl (7-17); CALCIUM 8.2 mg/dL (8.4-10.2); GFR NON-AFRICAN AMERICAN > 60
[2018-08-04] MEDS: Cholecalciferol 1,000 INTLU TAB PO SCH (08:49)
[2018-08-04] MEDS: Calcium-Vit D 500 mg-200 Units Tab UD PO SCH (08:53)
--- NOTE | 2018-08-04 12:58 | CP.PCM.PN ---
<Angelina Naik - Last Filed: 08/04/18 12:56> Subjective - Date & Time of Evaluation Date of Evaluation: 08/04/18 Time of Evaluation: 09:20 - Subjective Subjective: 58 y/o F POD 3 sp revision of Rt TKR. Patient reports that her pain has been controlled on current pain control regimen. Urinating well, had a normal BM yesterday after dulcolax PO. No events overnight. Denies CP/SOB/N/V. Objective - Vital Signs/Intake and Output Vital Signs (last 24 hours): Temp Pulse Resp BP Pulse Ox 98.7 F 86 18 132/85 96 08/04/18 08:34 08/04/18 08:34 08/04/18 08:34 08/04/18 08:34 08/04/18 08:34 - Medications Medications: Current Medications Acetaminophen (Tylenol 325mg Tab) 650 mg PO Q4 [facility] Last Admin: 08/04/18 12:46 Dose: 650 mg Bisacodyl (Dulcolax) 10 mg PO HS PRN PRN Reason: Constipation Calcium/Vitamin D (Oyster Shell Calcium/Vitamin D 500 Mg-200 Iu) 1 tab PO DAILY [facility] Last Admin: 08/04/18 08:53 Dose: 1 tab Cholecalciferol (Vitamin D) 4,000 intlu PO DAILY [facility] Last Admin: 08/04/18 08:49 Dose: 4,000 intlu Docusate Sodium (Colace) 100 mg PO BID [facility] Last Admin: 08/04/18 08:48 Dose: Not Given Enoxaparin Sodium (Lovenox) 40 mg SC DAILY@1700 [facility]; Protocol Last Admin: 08/03/18 16:22 Dose: 40 mg Sodium Chloride (Sodium Chloride 0.9%) 500 mls @ 125 mls/hr IV .Q4H [facility] Last Admin: 08/03/18 16:29 Dose: Not Given Ketorolac Tromethamine (Toradol) 30 mg IVP Q6 PRN PRN Reason: Pain, Mild (1-3) Last Admin: 08/04/18 12:44 Dose: 30 mg Morphine Sulfate (Morphine) 2 mg IVP Q4 PRN PRN Reason: Pain, severe (8-10) Last Admin: 08/02/18 18:10 Dose: 2 mg Ondansetron HCl (Zofran Inj) 4 mg IVP Q6 PRN PRN Reason: Nausea/Vomiting - Labs Labs: 08/04/18 05:30 08/04/18 05:30 - Skin Additional comments: Constitutional Appears: Non-toxic - Head Exam Head Exam: ATRAUMATIC, NORMAL INSPECTION - Eye Exam Eye Exam: EOMI - ENT Exam ENT Exam: Mucous Membranes Moist - Respiratory Exam Respiratory Exam: Clear to Ausculation Bilateral - Cardiovascular Exam Cardiovascular Exam: REGULAR RHYTHM, +S1, +S2 - Extremities Exam Additional comments: right knee imbolizer in place; scd in place on left lower leg - Neurological Exam Neurological Exam: Alert, Awake, Oriented x3 Additional comments: sensation to b/l lower ext digits intact and symmetrical - Psychiatric Exam Psychiatric exam: Normal Mood Assessment and Plan - Assessment and Plan (Free Text) Assessment: 58 y/o female with no significant PMH, POD 3 s/p revision of right TKR. Plan: 1. Revision of right TKR -on POD #3 -afebrile, VS stable -Cont management as per Ortho -c/w pain control -c/w constipation prevention -Hbg stable; , BMP unremarkable -cont. to Monitor 2. Vit D deficiency -C/w vit D replacement 3. Leukocytosis could be reactive after surgery has been afebrile, normal vital signs f/u in repeat CBC 4. DVT prophylaxis on Lovenox 40 mg [facility] <Allie Lay - Last Filed: 08/04/18 16:45> Objective - Vital Signs/Intake and Output Vital Signs (last 24 hours): Temp Pulse Resp BP Pulse Ox 97.9 F 80 20 102/63 97 08/04/18 16:05 08/04/18 16:05 08/04/18 16:05 08/04/18 16:05 08/04/18 16:05 - Medications Medications: Current Medications Acetaminophen (Tylenol 325mg Tab) 650 mg PO Q4 PRN PRN Reason: Pain, Mild (1-3) Bisacodyl (Dulcolax) 10 mg PO HS PRN PRN Reason: Constipation Calcium/Vitamin D (Oyster Shell Calcium/Vitamin D 500 Mg-200 Iu) 1 tab PO DAILY [facility] Last Admin: 08/04/18 08:53 Dose: 1 tab Cholecalciferol (Vitamin D) 4,000 intlu PO DAILY [facility] Last Admin: 08/04/18 08:49 Dose: 4,000 intlu Docusate Sodium (Colace) 100 mg PO BID [facility] Last Admin: 08/04/18 16:27 Dose: Not Given Enoxaparin Sodium (Lovenox) 40 mg SC DAILY@1700 [facility]; Protocol Last Admin: 08/04/18 16:27 Dose: 40 mg Sodium Chloride (Sodium Chloride 0.9%) 500 mls @ 125 mls/hr IV .Q4H [facility] Last Admin: 08/03/18 16:29 Dose: Not Given Ketorolac Tromethamine (Toradol) 30 mg IVP Q6 PRN PRN Reason: Pain, Mild (1-3) Last Admin: 08/04/18 12:44 Dose: 30 mg Morphine Sulfate (Morphine) 2 mg IVP Q4 PRN PRN Reason: Pain, severe (8-10) Last Admin: 08/02/18 18:10 Dose: 2 mg Ondansetron HCl (Zofran Inj) 4 mg IVP Q6 PRN PRN Reason: Nausea/Vomiting - Labs Labs: 08/04/18 05:30 08/04/18 05:30 Attending/Attestation - Attestation I have personally seen and examined this patient.: Yes I have fully participated in the care of the patient.: Yes I have reviewed all pertinent clinical information, including history, physical exam and plan: Yes Notes (Text): Revision TKR Right knee Primary Osteoarthritis Leukocytosis likely Reactive, no signs of infection Pt's pain is controlled, afebrile, no signs of infection Incentive spirometry DVT proph with Lovenox received IV Cefazolin x 3 doses PT/OT consulted - rec [facility] Cleared for d/c, awaiting [facility]A placement/insurance authorization
[2018-08-04] MEDS: Enoxaparin 40 mg Syringe SC SCH (16:27)
[2018-08-05 06:16] LABS: HEMOGLOBIN 9.2 g/dL (12.0-16.0); MEAN CELL VOLUME 83.5 fl (81.0-99.0); MEAN CORPUSCULAR HEMOGLOBIN 27.6 pg (27.0-31.0); MEAN CORPUSCULAR HGB CONC 33.1 g/dL (33.0-37.0); RBC 3.35 Mil/uL (3.80-5.20); RED CELL DISTRIBUTION WIDTH 13.8 % (11.5-14.5); WHITE BLOOD COUNT 11.6 K/uL (4.8-10.8)
[2018-08-05] MEDS: Cholecalciferol 1,000 INTLU TAB PO SCH (08:33)
[2018-08-05] MEDS: Calcium-Vit D 500 mg-200 Units Tab UD PO SCH (08:41)
--- NOTE | 2018-08-05 09:56 | CP.PCM.DIS ---
Provider - Provider Date of Admission: 08/01/18 12:10 Attending physician: Leona Ramos DO Consults: 08/01/18 12:10 Case Management Referral Routine Comment: Physician Instructions: Reason For Exam: Reason for Referral: Discharge Planning 08/01/18 13:05 Orthopedic Consult Routine Comment: Consulting Provider: Roman Parra III Consulting Physician: Roman Parra III Reason for Consult: revision TKR Time Spent in preparation of Discharge (in minutes): 30 Diagnosis - Discharge Diagnosis (1) Pain due to knee joint prosthesis Status: Acute Comment: POD# 4 s/p R revision TKA by Dr. Parra. Stable to be transfer to [facility]/ with Dr. Parra as outpatient. Hospital Course - Lab Results Lab Results: Micro Results 08/01/18 10:00 Body Fluid - Knee-Right Anaerobic Culture - Final NO ANAEROBES ISOLATED. 08/01/18 10:00 Body Fluid - Knee-Right Body Fluid Culture - Preliminary NO GROWTH AFTER 3 DAYS 08/01/18 13:56 Knee - Right Gram Stain - Final 08/01/18 13:56 Knee - Right Wound Culture - Final No Growth 08/01/18 13:56 Knee - Right Gram Stain - Final 08/01/18 13:56 Knee - Right Wound Culture - Final No Growth 08/01/18 13:56 Knee - Right Gram Stain - Final 08/01/18 13:56 Knee - Right Wound Culture - Final No Growth 08/01/18 13:56 Knee - Right Gram Stain - Final 08/01/18 13:56 Knee - Right Wound Culture - Final No Growth 08/01/18 13:56 Knee - Right Gram Stain - Final 08/01/18 13:56 Knee - Right Wound Culture - Final No Growth 08/01/18 13:56 Knee - Right Gram Stain - Final 08/01/18 13:56 Knee - Right Wound Culture - Final No Growth 08/01/18 13:56 Knee - Right Gram Stain - Final 08/01/18 13:56 Knee - Right Wound Culture - Final No Growth 08/01/18 10:00 Knee Right Fungal Culture - Preliminary 08/01/18 10:00 Other: Please Indicate Mycobacterial Culture - Preliminary Most Recent Lab Values WBC 11.6 K/uL (4.8-10.8) H 08/05/18 05:15 RBC 3.35 Mil/uL (3.80-5.20) L 08/05/18 05:15 Hgb 9.2 g/dL (12.0-16.0) L 08/05/18 05:15 Hct 27.9 % (34.0-47.0) L 08/05/18 05:15 MCV 83.5 fl (81.0-99.0) 08/05/18 05:15 MCH 27.6 pg (27.0-31.0) 08/05/18 05:15 MCHC 33.1 g/dL (33.0-37.0) 08/05/18 05:15 RDW 13.8 % (11.5-14.5) 08/05/18 05:15 Plt Count 347 K/uL (130-400) 08/05/18 05:15 Sodium 136 mmol/l (132-148) 08/04/18 05:30 Potassium 3.7 MMOL/L (3.6-5.0) 08/04/18 05:30 Chloride 103 mmol/L (98-107) 08/04/18 05:30 Carbon Dioxide 21 mmol/L (22-30) L 08/04/18 05:30 Anion Gap 16 (10-20) 08/04/18 05:30 BUN 8 mg/dl (7-17) 08/04/18 05:30 Creatinine 0.6 mg/dl (0.7-1.2) L 08/04/18 05:30 Est GFR ( Amer) > 60 08/04/18 05:30 Est GFR (Non-Af Amer) > 60 08/04/18 05:30 Random Glucose 97 mg/dL (65-105) 08/04/18 05:30 Calcium 8.2 mg/dL (8.4-10.2) L 08/04/18 05:30 25-OH Vitamin D Total < 12.8 NG/ML (30.0-100.0) L 08/02/18 06:05 Fluid Type Synovial fluid 08/01/18 09:12 Synovial WBC 21.0 /mm3 (0.0-150.0) 08/01/18 09:12 Synovial RBC 87871.0 /mm3 (0.0-0.0) H 08/01/18 09:12 Synovial Neutrophils 19.0 % (0-0) H 08/01/18 09:12 Synovial Lymphocytes 28.0 % (0-0) H 08/01/18 09:12 Synov Monos/Macrophage 3 % (0-0) H 08/01/18 09:12 Synovial Fluid Comment Slightly bloody 08/01/18 09:12 Blood Type O POSITIVE 08/01/18 07:20 Blood Type Confirm O POSITIVE 08/01/18 08:15 Antibody Screen Negative 08/01/18 07:20 Crossmatch See Detail 08/01/18 07:20 BBK History Checked No verified bt 08/01/18 07:20 - Hospital Course Hospital Course: 58 y/o female with no significant PMH, POD #4 s/p revision of right TKR. On admission patient was afebrile. However CBC showed leukocytosis, possible reactive after surgery, which improved in repeat CBC. Pain was well controlled on admission. Had Physical therapy evaluation and treatment. Patient was seen and evaluated at bedside this morning. Patient feels well and denies any complains at this eval. Eating well. Urinating well, and having normal bowel movements. Stable for DC to [facility]. C/w DVT prophylaxis with aspirin 81 mg BID as per Orthopedic recommendations. Patient cleared by Ortho for discharge to [facility]. F/u as outpatient. - Date & Time of H&P Date of H&P: 08/05/18 Time of H&P: 06:35 Discharge Exam - Head Exam Head Exam: ATRAUMATIC, NORMAL INSPECTION - Eye Exam Eye Exam: Normal appearance - ENT Exam ENT Exam: Mucous Membranes Moist - Respiratory Exam Respiratory Exam: Clear to PA & Lateral, NORMAL BREATHING PATTERN, UNREMARKABLE. absent: Rales, Rhonchi, Wheezes, Respiratory Distress, Stridor - Cardiovascular Exam Cardiovascular Exam: REGULAR RHYTHM, +S1, +S2 - GI/Abdominal Exam GI & Abdominal Exam: Normal Bowel Sounds, Soft. absent: Distended, Guarding, Rebound, Rigid, Tenderness - Extremities Exam Extremities exam: normal inspection - Neurological Exam Neurological exam: Alert, Oriented x3 - Psychiatric Exam Psychiatric exam: Normal Affect, Normal Mood - Skin Skin Exam: Dry, Intact, Normal Color Discharge Plan - Discharge Medications Prescriptions: Aspirin [Low Dose Aspirin EC] 81 mg PO BID #60 tablet. Calcium/Vitamin D [Oyster Shell Calcium/Vitamin D 500 mg-200 IU] 1 tab PO DAILY #30 tab Cholecalciferol [Vitamin D 1000 IU] 4,000 intlu PO DAILY #30 tab Docusate [Colace] 100 mg PO BID #30 cap oxyCODONE/Acetaminophen [Percocet 5/325 mg Tab] 1 ea PO Q6 #20 tab - Follow Up Plan Condition: STABLE Disposition: REHAB FACILITY/REHAB UNIT Patient education suggested?: Yes Instructions: Total Knee Replacement (DC), Weight-Bearing Restrictions Additional Instructions: follow up with Dr Parra 5-7 days or as indicated by surgeon Maintained on rt. knee immobilizer. full weight bearing. CPM AT 75 DEGREE FLEXTION INCREASED TOLERATED. Referrals: Roman Parra III, MD [Staff Provider] -
--- NOTE | 2018-08-05 10:17 | CP.PCM.PN ---
Subjective - Date & Time of Evaluation Date of Evaluation: 08/05/18 Time of Evaluation: 09:00 - Subjective Subjective: Patient seen and examined at bedside comfortable. Pain well controlled. Tolerating PT well. Drain removed over weekend by Dr. Parra. Denies CP/SOB/dizziness/fever. Scheduled for d/c to [facility] today. Objective - Vital Signs/Intake and Output Vital Signs (last 24 hours): Temp Pulse Resp BP Pulse Ox 98.2 F 92 H 20 123/80 99 08/05/18 08:10 08/05/18 08:10 08/05/18 08:10 08/05/18 08:10 08/05/18 08:10 - Medications Medications: Current Medications Acetaminophen (Tylenol 325mg Tab) 650 mg PO Q4 PRN PRN Reason: Pain, Mild (1-3) Bisacodyl (Dulcolax) 10 mg PO HS PRN PRN Reason: Constipation Calcium/Vitamin D (Oyster Shell Calcium/Vitamin D 500 Mg-200 Iu) 1 tab PO DAILY [facility] Last Admin: 08/05/18 08:41 Dose: 1 tab Cholecalciferol (Vitamin D) 4,000 intlu PO DAILY [facility] Last Admin: 08/05/18 08:33 Dose: 4,000 intlu Docusate Sodium (Colace) 100 mg PO BID [facility] Last Admin: 08/05/18 08:39 Dose: Not Given Enoxaparin Sodium (Lovenox) 40 mg SC DAILY@1700 [facility]; Protocol Last Admin: 08/04/18 16:27 Dose: 40 mg Sodium Chloride (Sodium Chloride 0.9%) 500 mls @ 125 mls/hr IV .Q4H [facility] Last Admin: 08/03/18 16:29 Dose: Not Given Ketorolac Tromethamine (Toradol) 30 mg IVP Q6 PRN PRN Reason: Pain, Mild (1-3) Last Admin: 08/04/18 12:44 Dose: 30 mg Ondansetron HCl (Zofran Inj) 4 mg IVP Q6 PRN PRN Reason: Nausea/Vomiting - Labs Labs: 08/05/18 05:15 08/04/18 05:30 - Extremities Exam Additional comments: R knee: Knee imm in place Compressive dressings CDI sensation intact SP/DP/TN motor intact EHL/FHL/TA/G pedal pulse intact calves soft NT b/l Assessment and Plan (1) Pain due to knee joint prosthesis Assessment & Plan: POD# 4 s/p R revision TKA -pain well controlled -PT/OT -DVT ppx -orthopedically stable for discharge to [facility] ([facility]) today -d/w Dr. Parra who agrees with above Status: Acute
[2018-08-05 15:56] VITALS: BP 100/67; PULSE 96; RESP 18; TEMP 97.6; O2SAT 97
== END 2018-08-05 17:20 | disposition home or self-care (01) | DRG 467 ==
LOC: H.OPSURG 05:48 → H.MEDSURG1 12:10
PROVIDERS: ADMIT Student in an Organized Health Care Education/Training Program; ATTEND Student in an Organized Health Care Education/Training Program
PROC: 0SRV0JA Replacement of Right Knee Joint, Tibial Surface with Synthetic Substitute, Uncemented, Open Approach (ICD-10-PCS; 2018-08-01)
PROC: 0QSB04Z Reposition Right Lower Femur with Internal Fixation Device, Open Approach (ICD-10-PCS; 2018-08-01)
PROC: 0MQN0ZZ Repair Right Knee Bursa and Ligament, Open Approach (ICD-10-PCS; 2018-08-01)
PROC: 0SNC0ZZ Release Right Knee Joint, Open Approach (ICD-10-PCS; 2018-08-01)
PROC: 0SBC0ZZ Excision of Right Knee Joint, Open Approach (ICD-10-PCS; 2018-08-01)
PROC: 0SPV0JZ Removal of Synthetic Substitute from Right Knee Joint, Tibial Surface, Open Approach (ICD-10-PCS; principal; 2018-08-01 07:45)
DX: T84.84XA Pain due to internal orthopedic prosthetic devices, implants and grafts, initial encounter (principal); D62 Acute posthemorrhagic anemia; T84.092A Other mechanical complication of internal right knee prosthesis, initial encounter; M24.661 Ankylosis, right knee; Y83.1 Surgical operation with implant of artificial internal device as the cause of abnormal reaction of the patient, or of later complication, without mention of misadventure at the time of the procedure; Y79.2 Prosthetic and other implants, materials and accessory orthopedic devices associated with adverse incidents; M24.561 Contracture, right knee; S83.411A Sprain of medial collateral ligament of right knee, initial encounter; X58.XXXA Exposure to other specified factors, initial encounter; E55.9 Vitamin D deficiency, unspecified; M17.11 Unilateral primary osteoarthritis, right knee; D72.829 Elevated white blood cell count, unspecified; S76.111A Strain of right quadriceps muscle, fascia and tendon, initial encounter; M84.351A Stress fracture, right femur, initial encounter for fracture; I95.81 Postprocedural hypotension